=== PATIENT | male | born 1935 | race Hispanic/Latino ===

== ENCOUNTER 2022-07-27 06:56 | Day surgery (SDC) | payer OTHER ==
[2022-07-25 10:10] VITALS: BP 173/87
[2022-07-25 12:49] LABS: BASOPHILS % (AUTO) 0.5 % (0.0-5.0); EOSINOPHILS % (AUTO) 0.5 % (0.0-8.0); HEMATOCRIT 38.7 % (42-54); LYMPHOCYTES % (AUTO) 19.2 % (21.0-51.0); MEAN CORPUSCULAR HEMOGLOBIN 31.5 pg (27.0-33.0); MEAN CORPUSCULAR HGB CONC 33.9 g/dL (32.0-36.0); NEUTROPHILS % (AUTO) 71.5 % (40.0-77.0); PLATELET COUNT (AUTO) 231 K/uL (130-400); RED BLOOD CELL COUNT(AUTO) 4.16 MIL/uL (4.50-6.20); RED CELL DISTRIBUTION WIDTH 14.2 % (11.0-15.5); WHITE BLOOD COUNT (AUTO) 6.4 K/uL (4.8-10.8)
[2022-07-25 12:59] LABS: CREATININE 1.2 mg/dL (0.5-1.5); POTASSIUM 4.3 mmol/L (3.5-5.1)
[2022-07-25 13:01] LABS: PROTHROMBIN TIME 10.9 SEC (9.6-11.6)
[2022-07-25 13:02] LABS: PARTIAL THROMBOPLASTIN TIME 27.3 SEC (26.3-35.5)
[2022-07-27] VITALS (9 sets, daily range): BP systolic 142–163; BP diastolic 67–74
[~2022-07-27] VITALS: Ht 170.2 cm; Wt 83.6 kg
[~2022-07-27 06:56] MED LIST: ACET-66 PO; ASPI-1443 PO; LINA290C PO
[2022-07-27] MEDS ORDERED: CEFAZOLIN SODIUM 1 GM VIAL IVP ONE (08:00)
[2022-07-27] MEDS ORDERED: 0.9%NACL 1000ML 1,000 ML IV SCH (08:00)
[2022-07-27] MEDS ORDERED: MEPERIDINE-PF 25 MG/ML SYG ONE ×3 (09:45→14:00)
[2022-07-27] MEDS ORDERED: LIDOCAINE HCL-MPF 2% 10ML AMP IJ ONE (09:45)
[2022-07-27] MEDS ORDERED: BUPIVACAINE/PF 0.25% 30ML VIAL IJ ONE (09:45)
[2022-07-27] MEDS ORDERED: MIDAZOLAM HCL 1 MG/ML 2ML VIAL ONE ×3 (09:45→14:00)
[2022-07-27] MEDS ORDERED: CEFAZOLIN SODIUM 1 GM VIAL ONE (12:12)
[2022-07-27] MEDS ORDERED: IOHEXOL-350 75 ML VIAL IV ONE (13:41)
[2022-07-27] MEDS ORDERED: TRAM50TA4 PO (15:09)
[2022-07-27] MEDS ORDERED: ACETAMINOPHEN WITH CODEINE 1 TAB TAB PO PRN (15:30)
[2022-07-27] MEDS ORDERED: ACETAMINOPHEN 500 MG TABLET PO PRN (15:30)
== END 2022-07-27 18:25 | disposition home or self-care (01) ==
LOC: DAH 06:56
PROVIDERS: ATTEND Internal Medicine Cardiovascular Disease
DX: I49.5 Sick sinus syndrome (principal); I44.0 Atrioventricular block, first degree; I44.7 Left bundle-branch block, unspecified; I87.2 Venous insufficiency (chronic) (peripheral); I73.9 Peripheral vascular disease, unspecified; F03.90 Unspecified dementia, unspecified severity, without behavioral disturbance, psychotic disturbance, mood disturbance, and anxiety; Z79.82 Long term (current) use of aspirin; Z79.01 Long term (current) use of anticoagulants; Z79.899 Other long term (current) drug therapy; Z98.890 Other specified postprocedural states; Z83.3 Family history of diabetes mellitus; Z83.438 Family history of other disorder of lipoprotein metabolism and other lipidemia
CPT/HCPCS: 80048; 85025; 85610; 85730; 36415; 93005; 33208; 71045; C1785; C1898 ×2; J0690 ×2; J7030; J3490 ×2; J2250 ×3; J2175 ×3; Q9967; A4215; A4222; A4221; A4663; A4216; A4606; A4223 ×3; 99156; 99157